=== PATIENT | male | born 1985 | race Caucasian/White ===

== ENCOUNTER 2018-05-05 03:09 | Emergency (ER) | payer BC ==
[~2018-05-05] VITALS: Ht 175.3 cm; Wt 136.7 kg
[~2018-05-05 03:09] MED LIST: ALPR-475 PO; OMEP20CA9 PO; SERT50TA PO
[2018-05-05 03:13] VITALS: BP 156/100
[2018-05-05] MEDS ORDERED: LEVO137T3 PO (03:16)
[2018-05-05] MEDS ORDERED: LANS30CA60 PO (03:16)
== END 2018-05-05 05:13 | disposition home or self-care (01) ==
LOC: ED 05:07
DX: S46.012A Strain of muscle(s) and tendon(s) of the rotator cuff of left shoulder, initial encounter (principal); F41.1 Generalized anxiety disorder; E03.9 Hypothyroidism, unspecified; X58.XXXA Exposure to other specified factors, initial encounter; Y93.89 Activity, other specified; Y92.89 Other specified places as the place of occurrence of the external cause; Y99.8 Other external cause status
CPT/HCPCS: 99284

== ENCOUNTER 2018-08-06 17:01 | Emergency (ER) | payer BC ==
[~2018-08-06] VITALS: Ht 175.3 cm; Wt 136.0 kg
[~2018-08-06 17:01] MED LIST changes: +LANS30CA60 PO; +LEVO137T3 PO
[2018-08-06 17:08] VITALS: BP 166/129
--- NOTE | 2018-08-06 18:45 | NUR ---
PT EDUCATED ON DISCHARGE INSTRUCTIONS, VERBALLY ACKNOWLEDGED UNDERSTANDING. PT AMBULATES WITH STEADY GAIT. PT SYMPTOMS IMPROVED AT THIS TIME.
== END 2018-08-06 18:46 | disposition home or self-care (01) ==
LOC: ED 18:17
DX: S40.012A Contusion of left shoulder, initial encounter (principal); I10 Essential (primary) hypertension; F17.200 Nicotine dependence, unspecified, uncomplicated; W01.0XXA Fall on same level from slipping, tripping and stumbling without subsequent striking against object, initial encounter; Y93.89 Activity, other specified; Y92.009 Unspecified place in unspecified non-institutional (private) residence as the place of occurrence of the external cause; Y99.8 Other external cause status
CPT/HCPCS: 99283

== ENCOUNTER 2018-10-08 19:19 | Emergency (ER) | payer BC ==
[~2018-10-08] VITALS: Ht 175.3 cm; Wt 137.4 kg
[2018-10-08 19:49] LABS: BASOPHILS # (AUTO) 0.03 x10^3/uL (0-0.1); BASOPHILS % (AUTO) 0 % (0-1); EOSINOPHILS # (AUTO) 0.13 x10^3/uL (0-0.4); EOSINOPHILS % (AUTO) 2 % (1-7); LYMPHOCYTES # (AUTO) 2.98 x10^3/uL (1-3.4); LYMPHOCYTES % (AUTO) 34 % (22-44); MD NO; MEAN CORPUSCULAR HGB CONC 34.7 g/dL (33.2-36.2); MEAN CORPUSCULAR VOLUME 86.3 fL (81-97); MEAN PLATELET VOLUME 9.7 fL (7.4-10.4); MONOCYTES # (AUTO) 0.44 x10^3/uL (0.2-0.8); MONOCYTES % (AUTO) 5 % (2-9); NEUTROPHILS # (AUTO) 5.19 x10^3/uL (1.8-6.8); NEUTROPHILS % (AUTO) 59 % (42-75); PLATELET COUNT 183 x10^3/uL (130-400); RED BLOOD COUNT 5.23 x10^6/uL (4.38-5.82); RED CELL DISTRIBUTION WIDTH 12.9 % (9.4-14.8)
[2018-10-08 20:01] LABS: ALANINE AMINOTRANSFERASE 81 U/L (12-78); ANION GAP 5 mmol/L (5-15); CALCIUM 9.1 mg/dL (8.5-10.1); CHLORIDE 110 mmol/L (98-107); CREATININE 0.81 mg/dL (0.7-1.3)
[2018-10-08 20:03] LABS: ALKALINE PHOSPHATASE 83 U/L (45-117); BILIRUBIN,TOTAL 0.7 mg/dL (0.2-1.0); TOTAL PROTEIN 7.5 g/dL (6.4-8.2)
--- NOTE | 2018-10-08 20:37 | NUR ---
pt called to room from lobby
--- NOTE | 2018-10-08 20:48 | NUR ---
FIRST CONTACT W/ PT. PT WENT TO URGECT TO GET FOOT CHECKED OUT FOR WORK NOTE. STATES BP ELEVATED 160'S/120'S AND URGED TO COME TO ED FOR EXAM. DENIES ANY CP/SOB. PT BP ELEVATED IN ROOM. VS OTHERWISE STABLE. CALL LIGTH WITHIN REACH. AWAITING MD ASSESSMENT. ALL RESULTS BACK.
[2018-10-08 21:32] VITALS: BP 172/110
== END 2018-10-08 21:33 | disposition home or self-care (01) ==
LOC: ED 21:15
DX: I10 Essential (primary) hypertension (principal); F41.1 Generalized anxiety disorder; E03.9 Hypothyroidism, unspecified
CPT/HCPCS: 36415; 80053; 85025; 93005; 99284

== ENCOUNTER 2018-10-13 13:46 | Emergency (ER) | payer BC ==
[~2018-10-13] VITALS: Ht 175.3 cm; Wt 137.0 kg
[2018-10-13 13:52] VITALS: BP 145/95
--- NOTE | 2018-10-13 14:38 | NUR ---
PT ARRIVES TO ED WITH C/O OF ANXIETY WITH CHEST PAIN. PT REPORTS HES NOT SURE IF THIS COULD BE CARDIAC RELATED OR ITS HIS ANXIETY. DID NOT WANT TO TAKE HIS HOME XANAX TO PREVENT MNASKING SYMPTOMS. PT ON ARRIVAL VSS AND NON DIAPHORETIC. DOES REPORT SOB, BUT SPO2 WDL. PT DENIES ANY BERG OR NEURO DEFICETS. PT CONNECTED TO MONITORS AND CALL LIGHT IN REACH. AWAITING FURHTER ORDERS.
[2018-10-13 14:59] LABS: ALBUMIN 3.7 g/dL (3.4-5.0); ANION GAP 9 mmol/L (5-15); BASOPHILS # (AUTO) 0.07 x10^3/uL (0-0.1); BASOPHILS % (AUTO) 1 % (0-1); CALCIUM 8.5 mg/dL (8.5-10.1); CHLORIDE 109 mmol/L (98-107); EOSINOPHILS # (AUTO) 0.04 x10^3/uL (0-0.4); EOSINOPHILS % (AUTO) 1 % (1-7); LYMPHOCYTES # (AUTO) 2.59 x10^3/uL (1-3.4); LYMPHOCYTES % (AUTO) 42 % (22-44); MD NO; MEAN CORPUSCULAR HEMOGLOBIN 29.3 pg (27.5-34.5); MEAN CORPUSCULAR HGB CONC 33.7 g/dL (33.2-36.2); MEAN PLATELET VOLUME 10.2 fL (7.4-10.4); MONOCYTES # (AUTO) 0.54 x10^3/uL (0.2-0.8); MONOCYTES % (AUTO) 9 % (2-9); NEUTROPHILS # (AUTO) 2.87 x10^3/uL (1.8-6.8); NEUTROPHILS % (AUTO) 47 % (42-75); PLATELET COUNT 217 x10^3/uL (130-400); RED BLOOD COUNT 5.33 x10^6/uL (4.38-5.82); RED CELL DISTRIBUTION WIDTH 13.2 % (9.4-14.8)
[2018-10-13 15:04] LABS: CREATININE 0.76 mg/dL (0.7-1.3); TROPONIN I < 0.015 ng/mL (0.000-0.045)
--- NOTE | 2018-10-13 15:33 | NUR ---
Patient/Caregiver given discharge instructions and they have confirmed that they understand the instructions. Patient ambulatory with steady gait.
== END 2018-10-13 15:36 | disposition home or self-care (01) ==
LOC: ED 14:37
DX: R07.9 Chest pain, unspecified (principal); I10 Essential (primary) hypertension; E03.9 Hypothyroidism, unspecified; F41.1 Generalized anxiety disorder
CPT/HCPCS: 36415; 71045; 80048; 82040; 84484; 85025; 93005; 99284

== ENCOUNTER 2018-11-05 09:31 | Emergency (ER) | payer BC ==
[~2018-11-05] VITALS: Ht 175.3 cm; Wt 140.0 kg
--- NOTE | 2018-11-05 10:03 | NUR ---
PT AMBULATORY TO ROOM 4 W/ C/O DULL CP TO L SIDE STARTED THIS AM. PT STATES HE HAS HAD THIS HAPPEN TO HIM IN THE PAST AND WAS TOLD IT WAS MORE THAN LIKELY ANXIETY RELATED. PT STATES HE THINKS IT COULD BE ANXIETY RELATED AGAIN. PT CHANED INTO GOWN. RESTING ON GURNEY. MONITORS APPLIED.
--- NOTE | 2018-11-05 10:32 | NUR ---
ERP DR. BERGERON AT BEDSIDE.
--- NOTE | 2018-11-05 10:37 | NUR ---
PT BP ELEVATED. STATES HX HIGH BP. NEW RX FOR BP MEDS. PT STATES HE HASN'T STARTED THEM YET.
--- NOTE | 2018-11-05 10:47 | NUR ---
REFUSED XANAX AT THIS TIME. ERP NOTIFIED.
[2018-11-05 11:18] LABS: ALBUMIN 3.7 g/dL (3.4-5.0); ANION GAP 7 mmol/L (5-15); CALCIUM 8.5 mg/dL (8.5-10.1); CHLORIDE 110 mmol/L (98-107); CREATININE 0.75 mg/dL (0.7-1.3)
[2018-11-05 11:23] LABS: TROPONIN I < 0.015 ng/mL (0.000-0.045)
[2018-11-05 11:28] VITALS: BP 162/99
--- NOTE | 2018-11-05 11:28 | NUR ---
PT RESTING ON GURNEY. NADN. NINO.
[2018-11-05 12:09] LABS: HEMOGLOBIN A1C 5.8 % (4.2-6.3)
--- NOTE | 2018-11-05 12:11 | NUR ---
PT CHART REVIEWED AND PLACED FOR RECHECK.
== END 2018-11-05 12:32 | disposition home or self-care (01) ==
LOC: ED 10:37
DX: R07.89 Other chest pain (principal); I10 Essential (primary) hypertension; F41.1 Generalized anxiety disorder; E03.9 Hypothyroidism, unspecified; F17.200 Nicotine dependence, unspecified, uncomplicated
CPT/HCPCS: 36415; 80048; 82040; 83036; 84484; 93005; 99284

== ENCOUNTER 2018-11-21 05:30 | Emergency (ER) | payer BC ==
[~2018-11-21] VITALS: Ht 175.3 cm; Wt 138.3 kg
--- NOTE | 2018-11-21 06:38 | NUR ---
LAB WAS CALLED AND REQUESTED TO DRAW BLOOD WHICH WAS ORDERED OVER 40 MINUTES AGO.
[2018-11-21 06:55] LABS: BASOPHILS # (AUTO) 0.07 x10^3/uL (0-0.1); BASOPHILS % (AUTO) 1 % (0-1); EOSINOPHILS # (AUTO) 0.04 x10^3/uL (0-0.4); EOSINOPHILS % (AUTO) 1 % (1-7); LYMPHOCYTES # (AUTO) 2.09 x10^3/uL (1-3.4); LYMPHOCYTES % (AUTO) 22 % (22-44); MD NO; MEAN CORPUSCULAR HEMOGLOBIN 29.4 pg (27.5-34.5); MEAN CORPUSCULAR HGB CONC 34.4 g/dL (33.2-36.2); MEAN CORPUSCULAR VOLUME 85.4 fL (81-97); MEAN PLATELET VOLUME 10.2 fL (7.4-10.4); MONOCYTES % (AUTO) 5 % (2-9); NEUTROPHILS # (AUTO) 6.79 x10^3/uL (1.8-6.8); NEUTROPHILS % (AUTO) 72 % (42-75); PLATELET COUNT 216 x10^3/uL (130-400); RED BLOOD COUNT 5.66 x10^6/uL (4.38-5.82); RED CELL DISTRIBUTION WIDTH 12.7 % (9.4-14.8)
[2018-11-21 07:00] LABS: ALANINE AMINOTRANSFERASE 126 U/L (12-78); ANION GAP 8 mmol/L (5-15); CALCIUM 8.9 mg/dL (8.5-10.1); CHLORIDE 104 mmol/L (98-107); CREATININE 0.97 mg/dL (0.7-1.3)
[2018-11-21 07:02] LABS: ALKALINE PHOSPHATASE 94 U/L (45-117); BILIRUBIN,TOTAL 0.6 mg/dL (0.2-1.0); TOTAL PROTEIN 7.9 g/dL (6.4-8.2); TROPONIN I < 0.015 ng/mL (0.000-0.045)
[2018-11-21 07:31] VITALS: BP 149/96
== END 2018-11-21 07:50 ==
LOC: ED 07:35
DX: R11.2 Nausea with vomiting, unspecified (principal); R19.7 Diarrhea, unspecified; R07.89 Other chest pain; I10 Essential (primary) hypertension; F41.1 Generalized anxiety disorder; E03.9 Hypothyroidism, unspecified
CPT/HCPCS: 36415; 71045; 80053; 83690; 84484; 85025; 93005; 99284

== ENCOUNTER 2020-04-15 19:14 | Emergency (ER) | payer BC, MEDICAID ==
[~2020-04-15 19:14] MED LIST changes: -ALPR-475 PO; +ALPR0.5T7 PO; +HYDR25TA6 PO; +LISI-170 PO
[2020-04-15 19:26] VITALS: BP 144/85
--- NOTE | 2020-04-15 22:00 | NUR ---
NO ANSWER WHEN CALLED FOR ROOM
--- NOTE | 2020-04-15 22:55 | NUR ---
NO ANSWER WHEN CALLED FOR ROOM
--- NOTE | 2020-04-15 23:03 | NUR ---
lwbs nilx3
== END 2020-04-15 23:05 | disposition left against medical advice (07) ==
LOC: ED 19:34
DX: R07.9 Chest pain, unspecified (principal); F41.9 Anxiety disorder, unspecified; I10 Essential (primary) hypertension; K21.9 Gastro-esophageal reflux disease without esophagitis
CPT/HCPCS: 93005; 99283

== ENCOUNTER 2020-07-14 19:11 | Emergency (ER) | payer BC ==
[~2020-07-14] VITALS: Ht 175.3 cm; Wt 138.3 kg
[2020-07-14 19:14] VITALS: BP 142/70
--- NOTE | 2020-07-14 19:35 | NUR ---
PA IN TO SEE PT.
--- NOTE | 2020-07-14 20:02 | NUR ---
CXR RESULTS BACK, PT FOR RECHECK.
[2020-07-14] MEDS ORDERED: DEXAMETHASONE 4 MG TABLET ONE (20:15)
--- NOTE | 2020-07-14 20:27 | NUR ---
PT REFUSED DECADRON, STATES IT WILL "WORSEN MY ANXIETY". PT DISCHARGED HOME, AMBULATORY, NAD.
[2020-07-14] MEDS ORDERED: DEXAMETHASONE 4 MG TABLET PO ONE (20:30)
== END 2020-07-14 20:30 | disposition home or self-care (01) ==
LOC: ED 19:28
DX: J06.9 Acute upper respiratory infection, unspecified (principal); Z20.828 Contact with and (suspected) exposure to other viral communicable diseases; R09.81 Nasal congestion; F10.10 Alcohol abuse, uncomplicated; R05 Cough; R06.02 Shortness of breath; R07.89 Other chest pain; R06.00 Dyspnea, unspecified; E03.9 Hypothyroidism, unspecified; I10 Essential (primary) hypertension; F17.210 Nicotine dependence, cigarettes, uncomplicated; Z72.9 Problem related to lifestyle, unspecified; Y90.0 Blood alcohol level of less than 20 mg/100 ml
CPT/HCPCS: 71045; 87635; 93005; 99285; 99406

== ENCOUNTER 2020-09-02 18:44 | Emergency (ER) | payer BC ==
[~2020-09-02] VITALS: Ht 175.3 cm; Wt 141.0 kg
[2020-09-02 18:51] VITALS: BP 149/93
--- NOTE | 2020-09-02 19:07 | NUR ---
ASSUMED CARE OF PATIENT. PATIENT REPORTS NUMBNESS/TINGLING IN LEFT HAND TODAY, WHICH HAS NOW RESOLVED. NO NEURO DEFICITS NOTED. VS STABLE. CALL LIGHT IN PLACE. WILL CONTINUE TO MONITOR.
== END 2020-09-02 19:57 | disposition home or self-care (01) ==
LOC: ED 19:31
DX: G56.03 Carpal tunnel syndrome, bilateral upper limbs (principal); R20.2 Paresthesia of skin; I10 Essential (primary) hypertension; F17.200 Nicotine dependence, unspecified, uncomplicated
CPT/HCPCS: 29125; 82962; 99283

== ENCOUNTER 2021-01-08 21:59 | Emergency (ER) | payer BC ==
[~2021-01-08] VITALS: Ht 175.3 cm; Wt 138.0 kg
--- NOTE | 2021-01-08 23:57 | NUR ---
TASK RN: PT TO ROOM AT THIS TIME
[2021-01-09 00:26] LABS: BASOPHILS % (AUTO) 1 % (0-1); EOSINOPHILS % (AUTO) 1 % (1-7); LYMPHOCYTES % (AUTO) 43 % (22-44); MEAN CORPUSCULAR HEMOGLOBIN 30.2 pg (27.5-34.5); MEAN CORPUSCULAR HGB CONC 35.2 g/dL (33.2-36.2); MONOCYTES % (AUTO) 5 % (2-9); NEUTROPHILS % (AUTO) 51 % (42-75); PLATELET COUNT 177 x10^3/uL (130-400); RED BLOOD COUNT 5.19 x10^6/uL (4.38-5.82); RED CELL DISTRIBUTION WIDTH 13.2 % (9.4-14.8)
[2021-01-09 00:27] LABS: MD NO
[2021-01-09 00:33] LABS: ALANINE AMINOTRANSFERASE 67 U/L (12-78); ALBUMIN 3.8 g/dL (3.4-5.0); ANION GAP 5 mmol/L (5-15); CALCIUM 8.8 mg/dL (8.5-10.1); CHLORIDE 104 mmol/L (98-107); CREATININE 0.86 mg/dL (0.7-1.3)
[2021-01-09 00:36] LABS: ALKALINE PHOSPHATASE 83 U/L (45-117); BILIRUBIN,TOTAL 0.8 mg/dL (0.2-1.0); TOTAL PROTEIN 7.8 g/dL (6.4-8.2)
--- NOTE | 2021-01-09 01:30 | NUR ---
PROVIDER AT BEDSIDE FOR POC
[2021-01-09 01:35] VITALS: BP 142/89
--- NOTE | 2021-01-09 01:40 | NUR ---
Patient/Caregiver given discharge instructions and they have confirmed that they understand the instructions. Patient ambulatory with steady gait. NAD, all questions answered appropriately, denies additional needs at this time. No personal belongings left in room after discharge.
== END 2021-01-09 01:41 | disposition home or self-care (01) ==
LOC: ED 01-09 01:38
DX: K29.20 Alcoholic gastritis without bleeding (principal); F10.10 Alcohol abuse, uncomplicated; I10 Essential (primary) hypertension; E03.9 Hypothyroidism, unspecified; R94.31 Abnormal electrocardiogram [ECG] [EKG]; Y90.0 Blood alcohol level of less than 20 mg/100 ml
CPT/HCPCS: 36415; 71045; 80053; 83690; 85025; 93005; 99285

== ENCOUNTER 2021-04-30 18:34 | Emergency (ER) | payer BC ==
[~2021-04-30] VITALS: Ht 172.7 cm; Wt 134.8 kg
[2021-04-30 18:54] VITALS: BP 131/90
--- NOTE | 2021-04-30 20:26 | NUR ---
Patient given discharge instructions and they have confirmed that they understand the instructions. Patient ambulatory with steady gait. NAD, all questions answered appropriately, denies additional needs at this time. No personal belongings left in room after discharge.
== END 2021-04-30 20:27 | disposition home or self-care (01) ==
LOC: ED 19:00
DX: T78.49XA Other allergy, initial encounter (principal); I10 Essential (primary) hypertension
CPT/HCPCS: 99283